=== PATIENT | male | born 1955 | race Caucasian/White ===

== ENCOUNTER 2024-07-05 12:33 | Emergency (ER) | payer MEDICARE, SELFPAY ==
[2024-07-05 12:36] VITALS: BP 122/95
[2024-07-05 13:02] LABS: Urine Albumin Negative (Neg - Trace); Urine Bilirubin Negative (Negative); Urine Character Clear (Clear); Urine Color Yellow; Urine Glucose Negative (Negative); Urine Ketone Negative (Negative); Urine Leukocyte Trace (Negative); Urine Nitrite Negative (Negative); Urine Occult Blood Negative (Negative); Urine Specific Gravity 1.005 (<1.030); Urine Urobilinogen Negative (Neg - 1+)
[2024-07-05 14:05] LABS: Urine Bacteria Few (Negative); Urine Red Blood Cell 0-2 /HPF (0-2)
[2024-07-05 16:09] VITALS: BP 132/89
[2024-07-05 16:12] VITALS: BMI 26.4
--- NOTE | 2024-07-05 16:14 | ED.GENMED ---
History of Present Illness
General
Chief Complaint: Urinary Symptoms
Source: patient
Time Seen by Provider: 07/05/24 15:47
History of Present Illness
History of Present Illness:
68-year-old male presents to the emergency room complaining of dysuria and urinating frequently. Patient has been experiencing these symptoms for the past 10 days or so. Patient was just discharged yesterday from the hospital of [facility]
[place] where he had a stem cell transplant. Patient did alert them he was having the discomfort. He was initially treated with a medication that made his urine change color presumably Pyridium. This was stopped. He was also told that his
urine test were negative for any signs of infection. He was further told to follow-up with his urologist after discharge. Patient denies fever. He is tolerating oral intake. He has been drinking lots of fluids to stay hydrated.
Past History
Past History
ED Past Medical History: None
ED Past Surgical History: None
Social History
Tobacco: Non-smoker
Alcohol: None
Phy Exam
Physical Exam
Physical Exam:
General: Awake, Alert, Oriented X3. No acute distress.
Vitals: unremarkable
Head: Atraumatic
Eyes: Pupils equal, EOMI
Throat: Airway intact, no exudates
Neck: Trachea midline
Lungs: Clear and equal b/l
Heart: Regular rate, no murmurs
Abd: Soft, Nontender, No pulsatile mass
Neuro: Nonfocal
Skin: Warm, dry, no rash
Extremities: pulses equal b/l, no edema
Course
Orders/Labs/Results
Orders:
Orders
07/05/24 12:43
Urinalysis Reflex To Culture Urgent
Date Specimen was Collected: 07/05/24
Time Specimen was Collected: 12:39
Urine Microscopic Reflex Cult Urgent
07/05/24 16:25
US Renal With Bladder Urgent
Comment: bladder not full ok, looking at ureteral jets
Reason For Exam: dysuria
07/05/24 20:50
Phenazopyridine HCl [Pyridium] 100 mg PO NOW STA
07/05/24 21:12
Simethicone [Mylicon] 80 mg .ROUTE .STK-MED ONE
07/05/24 21:14
Simethicone [Mylicon] 80 mg PO NOW STA
Abnormal Lab Results
07/05/24
12:43
Leukocyte Esterase Rfl Trace A
(Negative)
Urine Bacteria (Reflex) Few A
(Negative)
Vital Signs
Initial and Last Documented VS:
Initial Vital Signs
Temp Pulse Resp BP Pulse Ox
98.2 F 108 20 122/95 96
07/05/24 12:36 07/05/24 12:36 07/05/24 12:36 07/05/24 12:36 07/05/24 12:36
Last Documented Vital Signs
Temp Pulse Resp BP Pulse Ox
98.2 F 99 16 121/86 97
07/05/24 12:36 07/05/24 21:19 07/05/24 21:19 07/05/24 21:19 07/05/24 21:19
MDM/Problems Addressed
Differential Diagnosis Includes:
Urinary tract infection, prostatitis, bladder spasm
MDM/Problems Addressed:
Patient presents with dysuria when he urinates. He is been urinating more frequently the wheeze had increased fluid intake. Patient has normal urinalysis. He was just discharged from [facility] yesterday and had labs prior to discharge so I do not
believe there is any benefit to repeating labs today. Ultrasound obtained of the kidney and bladder which is essentially normal other than prostatic hypertrophy. I do not believe antibiotics are indicated at this point. I do not believe the
patient has acute prostatitis as he is afebrile and does not appear toxic and his urine is normal. Will treat the patient with Pyridium. He needs to follow-up with urology.
*Radiology
Radiology exam reviewed: radiology read reviewed
*Critical Care Note
Total Time (30-74mins, 75-104mins- exclusive of procedures): Not Applicable
ED Attending Note
-
Portions of this chart may have been created with voice recognition software.� Occasional wrong word or��sound alike� substitutions may have occurred due to the inherent limitations of voice recognition software.
Discharge Plan
Departure
Patient Disposition: Home (Routine Discharge)
Date of Disposition: 07/05/24
Time of Disposition: 20:50
Patient with high blood pressure during this ER visit?: No
Condition: Good
Discharge Problem:
Dysuria
Prescriptions:
New
phenazopyridine [Pyridium] 100 mg tablet
100 mg PO Q8H PRN (Reason: dysuria) Qty: 6 0RF
No Action
oxycodone-acetaminophen [Percocet] 5-325 mg Tablet
1 tab PO Q6HPRN PRN (Reason: pain) Qty: 14 0RF
tamsulosin 0.4 mg Capsule
0.8 mg PO DAILY
fluticasone propionate 50 mcg/actuation [employer],Suspension
1 spray INTRANASAL DAILY
acyclovir 400 mg Tablet
400 mg PO DAILY
fentanyl 12 mcg/hr Patch 72 Hour
1 patch TRANSDERMAL Q72H
calcium carbonate-vitamin D3 600 mg-25 mcg (1,000 unit) Capsule
1 cap PO TID
Referrals:
German Pittman MD [Family Provider] -
Jeff Jenkins Jr., MD [Active] -
Activity Restrictions/Additional Instructions:
Your urine test shows no signs of infection. Your ultrasound of the kidney and bladder is also normal, except for an enlarged prostate. We will prescribe medication to help with the discomfort. I don't believe antibiotics are indicated at this
time. Please follow up with Dr. Jenkins
Interventions
Interventions:
*Risk Screen - Suicide Last Done: 07/05/24 12:36
*General Assessment Last Done: 07/05/24 16:17
*Neglect/Abuse Screening Last Done: 07/05/24 12:36
ED- Fall Risk Assessment Last Done: 07/05/24 16:17
*ED COVID-19 Vaccine History Last Done: 07/05/24 16:17
*Nursing Disposition Last Done: 07/05/24 21:19
ED-Male Genitourinary Assessment Last Done: 07/05/24 16:17
Discharge Date and Time
Discharge Date/Time: 07/05/24 21:20
Print Language: URDU
[2024-07-05 17:49] VITALS: BP 113/84
[2024-07-05] MEDS: Pyridium 100 MG PO (21:15)
[2024-07-05] MEDS: MYLICON 80 MG PO (21:15)
[2024-07-05 21:19] VITALS: BP 121/86
== END 2024-07-05 21:20 | disposition home or self-care (01) ==
LOC: EMR 12:33
PROVIDERS: Emergency Medicine; EMERGENCY PHYSICIAN Emergency Medicine; FAMILY PHYSICIAN Family Medicine
DX: R30.0 Dysuria (principal)
CPT/HCPCS: 99284; 76770; 81003; 81015

== ENCOUNTER → 2024-11-04 13:54 | Outpatient (REF) | payer MEDICARE, SELFPAY | LOC: RCS 13:54 | PROVIDERS: ATTENDING PHYSICIAN Internal Medicine Hematology & Oncology; FAMILY PHYSICIAN Family Medicine | DX: C79.51 Secondary malignant neoplasm of bone (principal); C90.00 Multiple myeloma not having achieved remission | CPT/HCPCS: 93306; 93356 ==

== ENCOUNTER → 2024-11-27 12:41 | Outpatient (REF) | payer MEDICARE, SELFPAY ==
[2024-11-27 13:00] VITALS: BP 121/87; BP_SYST 92
== END ==
LOC: RADI 12:41
PROVIDERS: ATTENDING PHYSICIAN Internal Medicine Hematology & Oncology; FAMILY PHYSICIAN Family Medicine
DX: M72.4 Pseudosarcomatous fibromatosis (principal); C90.00 Multiple myeloma not having achieved remission; C79.51 Secondary malignant neoplasm of bone
CPT/HCPCS: 88305; 20206; 76942; 88333; 88334; 88341; 88342

== ENCOUNTER 2025-08-04 06:17 | Day surgery (SDC) | payer MEDICARE, SELFPAY | END 2025-08-04 10:44 | disposition home or self-care (01) | LOC: GI 06:17 | PROVIDERS: ATTENDING PHYSICIAN Specialist | DX: Z12.11 Encounter for screening for malignant neoplasm of colon (principal); K57.30 Diverticulosis of large intestine without perforation or abscess without bleeding; K64.4 Residual hemorrhoidal skin tags; R19.4 Change in bowel habit; Z86.0101 Personal history of adenomatous and serrated colon polyps | CPT/HCPCS: 45380; 88305 ==